=== PATIENT | female | born 1955 | race Caucasian/White ===

== ENCOUNTER → 2024-08-02 | Outpatient (CLI) | payer MEDICARE ==
[2024-08-02 11:36] LABS: HCT 36.9 % (37.2-46.3); HGB 12.7 g/dL (12.0-15.0); MCH 30.7 pg (27.0-32.0); MCHC 34.4 g/dL (32.0-37.0); MCV 89.1 fL (80.0-97.0); Mean Platelet Volume 8.8 fL (9.5-12.2); Platelet Count 363 10*3/uL (140-440); RBC 4.14 10*6/uL (4.10-5.20); RDW 13.2 % (11.5-14.5); WBC 8.84 10*3/uL (4.50-10.00)
[2024-08-02 11:39] LABS: ALT 19 U/L (4-34); AST 27 U/L (14-36); African American GFR (CKD) >90 (>60 ml/min/1.73 sqM); Albumin 4.3 g/dL (3.5-5.0); Albumin/Globulin Ratio 1.6; Alkaline Phosphatase 102 U/L (38-126); Anion Gap 7 mmol/L; Blood Urea Nitrogen 13 mg/dL (7-17); Calcium 9.8 mg/dL (8.4-10.2); Carbon Dioxide 25 mmol/L (22-30); Chloride 100 mmol/L (98-107); Globulin 2.7 g/dL; Glucose 99 mg/dL (74-99); Non-African American GFR(CKD) >90 (>60 ml/min/1.73 sqM); Potassium 4.1 mmol/L (3.5-5.1); Sodium 132 mmol/L (137-145); Total Bilirubin 1.3 mg/dL (0.2-1.3)
[2024-08-02 11:40] LABS: INR 0.9 (<1.2); Partial Thromboplastin Time 22.6 sec (22.0-30.0); Prothrombin Time 10.4 sec (10.0-12.5)
== END | disposition home or self-care (01) ==
LOC: LABPAT 10:38
PROVIDERS: ATTEND Orthopaedic Surgery
DX: Z01.818 Encounter for other preprocedural examination (principal); S82.001A Unspecified fracture of right patella, initial encounter for closed fracture; X58.XXXA Exposure to other specified factors, initial encounter; Z22.322 Carrier or suspected carrier of Methicillin resistant Staphylococcus aureus
CPT/HCPCS: 80053; 85027; 85610; 85730; 93005